=== PATIENT | female | born 1980 | race Two or more races ===

== ENCOUNTER 2023-05-14 15:50 | Emergency (ER) | payer OTHER ==
[~2023-05-14] VITALS: Ht 165.1 cm; Wt 59.0 kg
[2023-05-14] MEDS ORDERED: CLONAZEPAM2 MG PO (16:02)
[2023-05-14] MEDS ORDERED: SEROQUEL200 MG PO (16:02)
[2023-05-14] MEDS ORDERED: PROZAC40 MG PO (16:02)
[2023-05-14] MEDS ORDERED: [UNRECOGNIZED DRUG - OTHER] (16:03)
[2023-05-14 18:55] LABS: HEMATOCRIT 41.5 % (36.0-45.00); HEMOGLOBIN 13.9 g/dL (12.0-15.00); MEAN CORPUSCULAR HEMOGLOBIN 30.5 pg (27.00-32.0); MEAN CORPUSCULAR HGB CONC 33.5 g/dl (32.0-36.0); PLATELET COUNT 265 K/uL (150-450); RED BLOOD COUNT 4.56 M/uL (4.00-6.00); RED CELL DISTRIBUTION WIDTH 13.1 % (11.5-14.5)
== END 2023-05-14 19:53 | disposition home or self-care (01) ==
LOC: ER 15:50
DX: J06.9 Acute upper respiratory infection, unspecified (principal); Z20.822 Contact with and (suspected) exposure to COVID-19